=== PATIENT | female | born 1965 | race Caucasian/White ===

== ENCOUNTER 2016-12-27 10:06 | Outpatient (CLI) | payer OTHER ==
[~2016-12-27 10:06] MED LIST: ATENOLOL50 MG PO; LOSARTAN POTASS1 TAB PO; MULTIVITAMIN1 TAB PO
--- NOTE | 2016-12-27 11:05 | DIAGNOSTIC IMAGING REPORT ---
PROCEDURE: MG BILATERAL SCREENING W/CAD INDICATION: Screening. Family history breast carcinoma (cousin). TECHNIQUE: Bilateral CC and MLO digital views. COMPARISON: Compared to 12/18/2015, 10/11/2014, and 07/12/2012. FINDINGS: Computer-aided detection applied. Moderately dense with a few dystrophic calcifications. Findings suggest development of an 8 mm nodular density in the central left breast (middle third, seen only on the MLO view). IMPRESSION: 1. Findings suggest an 8 mm nodular density in the central left breast (seen only on MLO view). While this may represent normal asymmetric parenchyma, underlying mass or cyst should also be considered. Further mammographic views ( true lateral view, CC and MLO spot compression views are recommended. In addition, left breast ultrasound is recommended. RESULT CODE: 0- Incomplete; needs additional evaluation. A. A negative report should not delay biopsy if a dominant or clinically suspicious mass is present. 10-15% of cancers are not identified by x-ray. B. A negative report may reinforce clinical impression. C. Adenosis and dense breasts may obscure an underlying neoplasm. D. False positive reports average 6-10%. E.. A yearly screening mammogram is recommended. A reminder letter will be scheduled.
== END 2016-12-27 23:00 ==
LOC: MAM SRH 10:06
DX: Z12.31 Encounter for screening mammogram for malignant neoplasm of breast (principal)

== ENCOUNTER 2017-01-10 11:08 | Outpatient (CLI) | payer OTHER ==
--- NOTE | 2017-01-10 13:27 | DIAGNOSTIC IMAGING REPORT ---
PROCEDURE: MG UNILATERAL DIAG-LT W/CAD INDICATION: Follow up possible left breast nodule. TECHNIQUE: True lateral digital view of the left breast. In addition, spot compression CC and MLO views were obtained of the central left breast (region of clinical concern). Finally, high-resolution left breast ultrasound was performed (18 mHz). COMPARISON: Comparison made to screening mammogram study on 12/27/2016. FINDINGS: MAMMOGRAM: Computer-aided detection applied. Moderately dense parenchymal pattern with a few dystrophic calcifications. There is no evidence of mass or nodule. BREAST ULTRASOUND: Normal parenchyma. No evidence of mass or cyst. IMPRESSION: 1. Negative mammogram and negative left breast ultrasound. 2. Findings discussed with the patient. 3. Resume routine screening schedule (December 2017) RESULT CODE: 1- Negative. A. A negative report should not delay biopsy if a dominant or clinically suspicious mass is present. 10-15% of cancers are not identified by x-ray. B. A negative report may reinforce clinical impression. C. Adenosis and dense breasts may obscure an underlying neoplasm. D. False positive reports average 6-10%. E.. A yearly screening mammogram is recommended. A reminder letter will be scheduled.
== END 2017-01-10 23:00 ==
LOC: MAM SRH 11:08
DX: R92.8 Other abnormal and inconclusive findings on diagnostic imaging of breast (principal)